=== PATIENT | female | born 1980 | race Caucasian/White ===

== ENCOUNTER 2024-04-17 17:06 | Inpatient (IN) | payer OTHER ==
[~2024-04-17] VITALS: Ht 154.9 cm; Wt 45.8 kg
[2024-04-17 17:22] LABS: COVID AG,FIA SOURCE NASAL SWAB
[2024-04-17 17:39] LABS: APPEARANCE,URINE CLEAR (CLEAR); BILIRUBIN,URINE NEGATIVE (NEGATIVE); COLOR,URINE COLORLESS (YELLOW); GLUCOSE, URINE (UA) NEGATIVE (NEGATIVE); KETONES,URINE NEGATIVE (NEGATIVE); LEUKOCYTE ESTERASE ,URINE NEGATIVE (NEGATIVE); NITRATE,URINE NEGATIVE (NEGATIVE); OCCULT BLOOD,URINE NEGATIVE (NEGATIVE); PH,URINE 7.5 (5.0-8.0); PH,URINE DRUG SCREEN 7.5 (5.0-8.0); PROTEIN,URINE NEGATIVE (NEGATIVE); SPECIFIC GRAVITIY, URINE 1.005 (1.003-1.030); UROBILINOGEN,URINE <=1.0 mg/dL (<=1.0)
[2024-04-17 17:41] LABS: HEMATOCRIT 27.2 % (36-46); HEMOGLOBIN 9.1 g/dL (12.0-16.0); MEAN CORPUSCULAR HEMOGLOBIN 31.2 pg (26.0-34.0); MEAN CORPUSCULAR HGB CONC 33.6 G/dL (31.0-37.0); MEAN CORPUSCULAR VOLUME 93 fL (80-100); PLATELET COUNT (AUTO) 305 K/uL (150-450); RED BLOOD CELL COUNT(AUTO) 2.93 MIL/uL (4.00-5.20); RED CELL DISTRIBUTION WIDTH 14.6 % (11.5-14.5); WHITE BLOOD COUNT (AUTO) 2.4 K/uL (4.5-11.0)
[2024-04-17 17:47] LABS: AMPHET/METH SCREEN,URINE NEGATIVE (NEGATIVE); BARBITURATE SCREEN, URINE NEGATIVE (NEGATIVE); BENZODIAZEPINES SCREEN,URINE NEGATIVE (NEGATIVE); CANNABINOID SCREEN,URINE POSITIVE (NEGATIVE); COCAINE SCREEN,URINE NEGATIVE (NEGATIVE); METHADONE SCREEN, URINE NEGATIVE (NEGATIVE); OPIATE SCREEN,URINE NEGATIVE (NEGATIVE); PHENCYCLIDINE SCREEN,URINE NEGATIVE (NEGATIVE)
[2024-04-17 17:51] LABS: SARS-COV2 (COVID) ANTIGEN,FIA Negative (Negative)
[2024-04-17 17:52] LABS: ALCOHOL, URINE DRUG SCREEN NEGATIVE (NEGATIVE)
[2024-04-17 17:59] LABS: BACTERIA,URINE Rare /HPF (None Seen); RBC,URINE 0-2 /HPF (0-2); SQUAMOUS EPITHELIAL CELL,UR Rare /LPF (None Seen); WBC,URINE 0-2 /HPF (0-5)
[2024-04-17 18:10] LABS: ALCOHOL, BLOOD (SERUM) < 3 mg/dL (0-10)
[2024-04-17 18:12] LABS: ANION GAP 7 mmol/L (8-16); CALCIUM, TOTAL 8.3 mg/dL (8.8-10.5); CARBON DIOXIDE 25 mmol/L (22-29); CHLORIDE 99 mmol/L (98-107); CREATININE 0.62 mg/dL (0.60-1.30); GLOMERULAR FILTR. RATE CALC > 60 mL/min (>60); GLUCOSE,RANDOM 85 mg/dL (70-110); POTASSIUM 3.8 mmol/L (3.5-5.1); SODIUM SERUM 131 mmol/L (136-145); UREA NITROGEN, BLOOD 9 mg/dL (7-18)
[2024-04-17] MEDS ORDERED: ZOLPIDEM TARTRATE 10 MG TABLET PO PRN (18:15)
[2024-04-17] MEDS ORDERED: MAGNESIUM HYDROXIDE SUSPENSION 30 ML UDCUP PO PRN (18:15)
[2024-04-17] MEDS ORDERED: HALOPERIDOL 5 MG TABLET PO PRN (18:15)
[2024-04-17] MEDS ORDERED: LOPERAMIDE HCL 2 MG CAPSULE PO PRN (18:15)
[2024-04-17 18:25] LABS: BAND NEUTROPHILS % (MANUAL) 2 % (0-5); LYMPHOCYTES % (MANUAL) 22 % (22-44); MONOCYTES % (MANUAL) 5 % (2-9); SEGMENTED NEUTROPHILS % 71 % (40-70); TOTAL CELLS COUNTED 100
[2024-04-17 18:26] LABS: RBC MORPHOLOGY COMMENT ABNORMAL RBC MORPH
[2024-04-17] MEDS ORDERED: HYDR200T76 PO (19:00)
[2024-04-17] MEDS ORDERED: PRED-729 PO (19:00)
[2024-04-17] MEDS ORDERED: ONDA-243 PO (19:00)
[2024-04-17] MEDS ORDERED: MYCO500T5 PO (19:00)
[2024-04-17] MEDS ORDERED: LAMO25TA36 PO (19:00)
[2024-04-17] MEDS: ACETAMINOPHEN 500 MG TABLET PO ONE ×2 (19:07→19:13)
[2024-04-17] MEDS: LORazepam 2 MG/ML VIAL IM ONE (21:09)
[2024-04-17] MEDS: HALOPERIDOL LACTATE 5 MG/ML VIAL IM ONE (21:09)
[2024-04-17] MEDS: DiphenhydrAMINE HCL 50 MG/ML VIAL IM ONE (21:09)
[2024-04-17 22:45] VITALS: O2SAT 99
[2024-04-18 00:35] VITALS: BP 139/77; PULSE 83; RESP 18; TEMP 97.8; O2SAT 98
[2024-04-18 08:06] VITALS: BP 123/85; PULSE 116; RESP 16; TEMP 96.6; O2SAT 100
[2024-04-18] MEDS: ACETAMINOPHEN 325 MG TABLET PO PRN (08:54)
[2024-04-18] MEDS ORDERED: NICOTINE 14 MG/24 HOUR PATCH TD PRN (09:00)
[2024-04-18] MEDS ORDERED: PETROLATUM,WHITE 28 GM JELLY TP PRN (09:00)
[2024-04-18] MEDS ORDERED: ALBUTEROL SULFATE HFA 90 MCG/PUFF 8 GM INHALER IH PRN (09:00)
[2024-04-18] MEDS ORDERED: DOCUSATE SODIUM 100 MG CAPSULE PO PRN (09:00)
[2024-04-18] MEDS ORDERED: ACETAMINOPHEN 325 MG TABLET PO PRN (09:00)
[2024-04-18] MEDS ORDERED: ONDANSETRON 4 MG TABLET PO PRN (09:00)
[2024-04-18] MEDS ORDERED: CloNIDine HCL 0.1 MG TABLET PO PRN (09:00)
[2024-04-18] MEDS ORDERED: LOPERAMIDE HCL 2 MG CAPSULE PO PRN (09:00)
[2024-04-18] MEDS ORDERED: GuaiFENesin/D-METHORPHAN [SUGAR-FREE] 200-20MG/10 ML SYRUP UDCUP PO PRN (09:00)
[2024-04-18] MEDS ORDERED: MAG HYDROX/ALUMINUM HYD/SIMETH ES 30 ML SUSPENSION UDCUP PO PRN (09:00)
[2024-04-18] MEDS ORDERED: MAGNESIUM HYDROXIDE SUSPENSION 30 ML UDCUP PO PRN (09:00)
[2024-04-18] MEDS: PredniSONE 10 MG TABLET PO SCH (09:18)
[2024-04-18] MEDS: PredniSONE 10 MG TABLET PO ONE (12:17)
[2024-04-18] MEDS: HYDROXYCHLOROQUINE SULFATE 200 MG TABLET PO SCH (15:29)
[2024-04-18] MEDS: FERROUS SULFATE 325 MG EC TABLET PO SCH (16:04)
[2024-04-18 20:05] VITALS: BP 117/70; PULSE 97; RESP 17; TEMP 97.7
[2024-04-18] MEDS: QUEtiapine FUMARATE 25 MG TABLET PO SCH (20:41)
[2024-04-19 08:01] VITALS: BP 109/64; RESP 16; TEMP 98.8; O2SAT 96
[2024-04-19 08:14] LABS: HEMOGLOBIN A1C 5.7 % (3.8-5.6)
[2024-04-19 08:32] LABS: CHOL/HDL RATIO 2.4 (3.9-5.7); THYROID STIMULATING HORMONE 1.36 uIU/mL (0.36-3.74)
[2024-04-19 20:04] VITALS: BP 135/90; PULSE 100; RESP 17; TEMP 97.5
[2024-04-19 20:58] VITALS: RESP 18
[2024-04-19] MEDS: IBUPROFEN 400 MG TABLET PO PRN (20:59)
[2024-04-19] MEDS: MAG HYDROX/ALUMINUM HYD/SIMETH ES 30 ML SUSPENSION UDCUP PO PRN (22:10)
[2024-04-20] MEDS: LORazepam 2 MG TABLET PO PRN (08:15)
[2024-04-20 08:26] VITALS: BP 120/79; PULSE 100; RESP 16; TEMP 97.8; O2SAT 100
[2024-04-20] MEDS ORDERED: QUET25TA PO (11:45)
[2024-04-20] MEDS ORDERED: QUET25TA36 PO (13:13)
== END 2024-04-20 14:54 | disposition home or self-care (01) | DRG 885 ==
LOC: EMS 17:06 → B3A 23:20 → EMS 23:21
PROVIDERS: ADMIT Psychiatry & Neurology Psychiatry; ATTEND Psychiatry & Neurology Psychiatry
PROC: GZHZZZZ Group Psychotherapy (ICD-10-PCS; principal; 2024-04-18)
DX: F25.1 Schizoaffective disorder, depressive type (principal); E87.1 Hypo-osmolality and hyponatremia; R45.851 Suicidal ideations; Z20.822 Contact with and (suspected) exposure to COVID-19; D72.810 Lymphocytopenia; D64.9 Anemia, unspecified; I73.00 Raynaud's syndrome without gangrene; Z79.899 Other long term (current) drug therapy
CPT/HCPCS: 80048; 80061; 80307; 81001; 83036; 84443; 85025; G0480; J1200; J1630; J2060

== ENCOUNTER 2024-06-03 08:31 | Inpatient (IN) | payer OTHER ==
[~2024-06-03] VITALS: Ht 165.1 cm; Wt 60.0 kg
[~2024-06-03 08:31] MED LIST: HYDR200T76 PO; MYCO500T5 PO; PRED-729 PO; QUET25TA PO; QUET25TA36 PO
[2024-06-03 08:51] LABS: BASOPHILS % (AUTO) 0.3 % (0.0-2.0); EOSINOPHILS % (AUTO) 0.1 % (1.0-6.0); HEMATOCRIT 25.7 % (36-46); HEMOGLOBIN 8.3 g/dL (12.0-16.0); LYMPHOCYTES # (AUTO) 0.4 K/uL (1.0-4.8); MEAN CORPUSCULAR HEMOGLOBIN 29.1 pg (26.0-34.0); MEAN CORPUSCULAR HGB CONC 32.2 G/dL (31.0-37.0); MEAN CORPUSCULAR VOLUME 90 fL (80-100); MONOCYTES # (AUTO) 0.3 K/uL (0.1-1.0); MONOCYTES % (AUTO) 5.4 % (2.0-9.0); NEUTROPHILS # (AUTO) 4.1 K/uL (1.8-7.7); PLATELET COUNT (AUTO) 235 K/uL (150-450); RED BLOOD CELL COUNT(AUTO) 2.85 MIL/uL (4.00-5.20); RED CELL DISTRIBUTION WIDTH 15.7 % (11.5-14.5); WHITE BLOOD COUNT (AUTO) 4.8 K/uL (4.5-11.0)
[2024-06-03 08:52] LABS: NEUTROPHILS % (AUTO) 86.2 % (40.0-70.0)
[2024-06-03 09:00] LABS: ANION GAP 7 mmol/L (8-16); CARBON DIOXIDE 25 mmol/L (22-29); CHLORIDE 99 mmol/L (98-107); CREATININE 0.74 mg/dL (0.60-1.30); GLOMERULAR FILTR. RATE CALC > 60 mL/min (>60); GLUCOSE,RANDOM 92 mg/dL (70-110); POTASSIUM 3.9 mmol/L (3.5-5.1); SODIUM SERUM 131 mmol/L (136-145); UREA NITROGEN, BLOOD 15 mg/dL (7-18)
[2024-06-03 09:11] LABS: HCG,QUANTITATIVE 2 mIU/mL (0-6)
[2024-06-03 09:13] LABS: ALCOHOL, BLOOD (SERUM) < 3 mg/dL (0-10)
[2024-06-03 10:18] LABS: APPEARANCE,URINE CLEAR (CLEAR); BILIRUBIN,URINE NEGATIVE (NEGATIVE); COLOR,URINE LIGHT YELLOW (YELLOW); GLUCOSE, URINE (UA) NEGATIVE (NEGATIVE); KETONES,URINE NEGATIVE (NEGATIVE); LEUKOCYTE ESTERASE ,URINE NEGATIVE (NEGATIVE); NITRATE,URINE NEGATIVE (NEGATIVE); OCCULT BLOOD,URINE NEGATIVE (NEGATIVE); PH,URINE 7.5 (5.0-8.0); PH,URINE DRUG SCREEN 7.5 (5.0-8.0); PROTEIN,URINE 30-70 mg/dL (NEGATIVE); SPECIFIC GRAVITIY, URINE 1.015 (1.003-1.030); UROBILINOGEN,URINE <=1.0 mg/dL (<=1.0)
[2024-06-03 10:26] LABS: ALCOHOL, URINE DRUG SCREEN NEGATIVE (NEGATIVE); AMPHET/METH SCREEN,URINE NEGATIVE (NEGATIVE); BARBITURATE SCREEN, URINE NEGATIVE (NEGATIVE); BENZODIAZEPINES SCREEN,URINE NEGATIVE (NEGATIVE); CANNABINOID SCREEN,URINE POSITIVE (NEGATIVE); COCAINE SCREEN,URINE NEGATIVE (NEGATIVE); METHADONE SCREEN, URINE NEGATIVE (NEGATIVE); OPIATE SCREEN,URINE NEGATIVE (NEGATIVE); PHENCYCLIDINE SCREEN,URINE NEGATIVE (NEGATIVE)
[2024-06-03 13:19] LABS: COVID AG,FIA SOURCE NPH
[2024-06-03 13:39] LABS: SARS-COV2 (COVID) ANTIGEN,FIA Negative (Negative)
[2024-06-03] MEDS: IBUPROFEN 400 MG TABLET PO ONE (14:45)
[2024-06-03] MEDS ORDERED: LOPERAMIDE HCL 2 MG CAPSULE PO PRN (17:15)
[2024-06-03] MEDS ORDERED: MAGNESIUM HYDROXIDE SUSPENSION 30 ML UDCUP PO PRN (17:15)
[2024-06-03] MEDS ORDERED: HALOPERIDOL 5 MG TABLET PO PRN (17:15)
[2024-06-03] MEDS: QUEtiapine FUMARATE 100 MG TABLET PO SCH (21:32)
[2024-06-03] MEDS: ZOLPIDEM TARTRATE 10 MG TABLET PO PRN (23:22)
[2024-06-03] MEDS: ACETAMINOPHEN 325 MG TABLET PO PRN (23:22)
[2024-06-03 23:27] VITALS: O2SAT 98
[2024-06-04] VITALS (7 sets, daily range): BP systolic 91–120; BP diastolic 63–72; PULSE 98–100; RESP 17–18; TEMP 97.3–97.8; O2SAT 98
[2024-06-04] MEDS ORDERED: INFLUENZA VIRUS VACCINE TVS (6MO+) 2024-25/PF 45 MCG/0.5 ML SYRINGE IM. ONE (03:15)
[2024-06-04] MEDS: FERROUS SULFATE 325 MG EC TABLET PO SCH (11:12)
[2024-06-04] MEDS: PredniSONE 10 MG TABLET PO SCH (11:12)
[2024-06-04] MEDS ORDERED: FERROUS SULFATE 325 MG EC TABLET PO SCH (12:00)
[2024-06-04] MEDS: IBUPROFEN 400 MG TABLET PO PRN (13:05)
[2024-06-04] MEDS: MYCOPHENOLATE MOFETIL 250 MG CAPSULE PO SCH (13:06)
[2024-06-04] MEDS: HYDROXYCHLOROQUINE SULFATE 200 MG TABLET PO SCH (13:07)
[2024-06-04] MEDS: LORazepam 2 MG TABLET PO PRN (21:14)
[2024-06-05 08:38] VITALS: BP 124/71; PULSE 86; RESP 16; TEMP 97.9; O2SAT 96
[2024-06-05 13:51] VITALS: RESP 18
[2024-06-05 14:50] VITALS: RESP 17
[2024-06-05 20:23] VITALS: BP 134/68; PULSE 98; RESP 18; TEMP 97.3; O2SAT 98
[2024-06-05] MEDS: MAG HYDROX/ALUMINUM HYD/SIMETH ES 30 ML SUSPENSION UDCUP PO PRN (20:46)
[2024-06-05 20:47] VITALS: BP 124/68; PULSE 95; RESP 14; TEMP 90.1; TEMP 97.8
[2024-06-05 21:23] VITALS: RESP 18; O2SAT 98
[2024-06-06 08:19] VITALS: BP 110/77; PULSE 89; RESP 16; TEMP 97.6; O2SAT 96
[2024-06-06 08:38] LABS: BASOPHILS % (AUTO) 0.2 % (0.0-2.0); EOSINOPHILS % (AUTO) 0.7 % (1.0-6.0); HEMOGLOBIN 9.7 g/dL (12.0-16.0); LYMPHOCYTES # (AUTO) 0.5 K/uL (1.0-4.8); LYMPHOCYTES % (AUTO) 23.2 % (22.0-44.0); MEAN CORPUSCULAR HEMOGLOBIN 29.1 pg (26.0-34.0); MEAN CORPUSCULAR HGB CONC 32.5 G/dL (31.0-37.0); MEAN CORPUSCULAR VOLUME 90 fL (80-100); MONOCYTES # (AUTO) 0.1 K/uL (0.1-1.0); MONOCYTES % (AUTO) 6.2 % (2.0-9.0); NEUTROPHILS # (AUTO) 1.6 K/uL (1.8-7.7); NEUTROPHILS % (AUTO) 69.7 % (40.0-70.0); PLATELET COUNT (AUTO) 240 K/uL (150-450); RED BLOOD CELL COUNT(AUTO) 3.34 MIL/uL (4.00-5.20); RED CELL DISTRIBUTION WIDTH 15.7 % (11.5-14.5); WHITE BLOOD COUNT (AUTO) 2.2 K/uL (4.5-11.0)
[2024-06-06 08:50] LABS: ANION GAP 8 mmol/L (8-16); CARBON DIOXIDE 23 mmol/L (22-29); CHLORIDE 102 mmol/L (98-107); CREATININE 0.72 mg/dL (0.60-1.30); GLOMERULAR FILTR. RATE CALC > 60 mL/min (>60); GLUCOSE,RANDOM 78 mg/dL (70-110); POTASSIUM 4.1 mmol/L (3.5-5.1); SODIUM SERUM 133 mmol/L (136-145); UREA NITROGEN, BLOOD 13 mg/dL (7-18)
[2024-06-06] MEDS ORDERED: QUET100T PO (11:15)
== END 2024-06-06 14:12 | disposition home or self-care (01) | DRG 885 ==
LOC: EMS 08:46 → B3A 23:33
PROVIDERS: ADMIT Psychiatry & Neurology Psychiatry; ATTEND Psychiatry & Neurology Psychiatry
DX: F25.0 Schizoaffective disorder, bipolar type (principal); M32.9 Systemic lupus erythematosus, unspecified; E87.1 Hypo-osmolality and hyponatremia; Z20.822 Contact with and (suspected) exposure to COVID-19; R45.850 Homicidal ideations; D64.9 Anemia, unspecified; G47.00 Insomnia, unspecified; Z79.899 Other long term (current) drug therapy
CPT/HCPCS: 80048; 80307; 81003; 84702; 85025; 90686; 99285; G0480; J7517